=== PATIENT | female | born 1990 | race Caucasian/White ===

== ENCOUNTER 2024-08-28 16:25 | Emergency (ER) | payer BC, SELFPAY ==
[2024-08-28 16:44] VITALS: BP 118/82; PULSE 78; RESP 14; TEMP 37; O2SAT 98; BMI 27.2
--- NOTE | 2024-08-28 17:38 | ED.GENADULT ---
HPI - General Adult General Date Seen: 08/28/24 Chief complaint: Skin/Abscess/Foreign Body Stated complaint: l. wrist possible cyst Time Seen by Provider: 08/28/24 17:27 History of Present Illness HPI narrative: 34-year-old female with a past medical history of GERD, fibromyalgia, history of gastric sleeve surgery and subsequent belt lipectomy, presenting to the ER today for a painful lump on her left wrist. She recalls that she had a lump on her left wrist some years ago and apparently was a cyst. She does not remember for sure but it might have been a ganglion cyst. She has had a recurrent lump affecting the palmar aspect on the ulnar side of her wrist for the past few weeks. It is a small lump roughly 1 or 2 cm in size. It has been getting a bit more painful for the past several days and now is causing diffuse wrist pain on the palmar surface and also on the dorsal surface of her wrist. The wrist pain it hurts more when she tries to flex and extend her fingers as well as flex and extend her wrist. She is able to pronate and supinate normally. Sometimes when the pain is severe it radiates all the way up the ulnar side of her wrist almost all the way to the elbow. She is not having any elbow pain and no trouble bending or straightening her elbow. No associated neck pain or other numbness down her arm. She has not noticed any redness. She noticed that her wrist and hands been a bit swollen. She wears her grandmother's ring on her left ring finger and normally it is loose but today it was tight. She was not able to get her ring off at home but was able to get off after she got here to the ER. She has not noticed any pallor or redness or discoloration of the wrist or hand. She has intact sensation in her hand. She is able to flex and extend her thumb and fingers but has wrist pain with flexing her fingers. No known injury. No fever or chills. She is not diabetic or immunosuppressed. Related Data Home Medications ?Medication ?Instructions ?Recorded ?Confirmed zinc gluconate 30 mg tablet 30 mg PO ONCE 05/26/22 09/10/22 [id number]-yhswilxn-yvbc 45 mg-folic 1 cap PO 07/14/22 09/10/22 acid 800 mcg-vit K 120 mcg capsule (Bariatric Multivitamins) Allergies Allergy/AdvReac Type Severity Reaction Status Date / Time codeine Allergy Severe Puffs up Verified 08/28/24 16:47 penicillin V Allergy Severe Airway Verified 08/28/24 16:47 blocked acetaminophen (From Allergy Verified 08/28/24 16:47 Tylenol-Codeine #3) [facility] Medical History (Updated 08/28/24 @ 20:35 by Justino Granados MD) History of chronic fatigue ?Z87.898 - Personal history of other specified conditions (ICD-10) History of anxiety ?Z86.59 - Personal history of other mental and behavioral disorders (ICD-10) History of tendinitis ?Z87.39 - Personal history of other diseases of the musculoskeletal system and connective tissue (ICD-10) Mild chronic gastritis ?K29.50 - Unspecified chronic gastritis without bleeding (ICD-10) History of anemia ?Z86.2 - Personal history of diseases of the blood and blood-forming organs and certain disorders involving the immune mechanism (ICD-10) Hx of migraine headaches ?Z86.69 - Personal history of other diseases of the nervous system and sense organs (ICD-10) Campos's cyst, unruptured ?M71.20 - Synovial cyst of popliteal space [Campos], unspecified knee (ICD-10) History of prediabetes ?Z87.898 - Personal history of other specified conditions (ICD-10) Loose skin ?L98.7 - Excessive and redundant skin and subcutaneous tissue (ICD-10) History of kidney stones ?Z87.442 - Personal history of urinary calculi (ICD-10) Kidney disease, medullary sponge ?Q61.5 - Medullary cystic kidney (ICD-10) Left wrist pain ?M25.532 - Pain in left wrist (ICD-10) -induced hypertension ?O13.9 - Gestational [-induced] hypertension without significant proteinuria, unspecified trimester (ICD-10) Obesity ?E66.9 - Obesity, unspecified (ICD-10) Infertility (05/01/15) Gestational diabetes mellitus (GDM) ?O24.419 - Gestational diabetes mellitus in , unspecified control (ICD-10) Excessive growth affecting management of mother ?O36.60X0 - Maternal care for excessive growth, unspecified trimester, not applicable or unspecified (ICD-10) Elevated blood-pressure reading without diagnosis of hypertension ?R03.0 - Elevated blood-pressure reading, without diagnosis of hypertension (ICD-10) Abscess of pelvis Surgical History (Updated 09/10/22 @ 15:19 by Nu Villanueva APRN, BUSINESS OPERATIONS CONSULTANT) History of cholecystectomy ?Z90.49 - Acquired absence of other specified parts of digestive tract (ICD-10) Hx of arthroscopy of left knee ?Z98.890 - Other specified postprocedural states (ICD-10) S/P laparoscopic sleeve gastrectomy ?Z98.84 - Bariatric surgery status (ICD-10) History of partial hysterectomy ?Z90.711 - Acquired absence of uterus with remaining cervical stump (ICD-10) Status post primary low transverse section ?Z98.891 - History of uterine scar from previous surgery (ICD-10) Family History (Updated 09/10/22 @ 15:20 by Nu Villanueva APRN, BUSINESS OPERATIONS CONSULTANT) Maternal Grandfather Heart disease Stroke Pulmonary embolism Mother Mental health disorder Medullary sponge kidney Fibromyalgia Anemia Hx of blood clots Brother Pulmonary embolism Daughter Medullary sponge kidney Maternal Grandmother Atrial fibrillation Hx of blood clots Pre-diabetes Uncle Heart disease Daughter Medullary sponge kidney Social History (Updated 05/26/22 @ 08:38 by Nu Villanueva APRN, BUSINESS OPERATIONS CONSULTANT) Narrative: . Works for [employer]. Exercises daily. Non-smoker. No alcohol. No illicit drug use. Smoking Status: Former smoker How often do you have a drink containing alcohol: never AUDIT-C Alcohol total score: 0 Non-prescribed substance use: denies use Exam Narrative: Exam Narrative: Constitutional: Appears well-developed and well-nourished. Active polite. Although she is uncomfortable she politely declines offered opiates.. Non-toxic appearing. HENT: Head: Atraumatic. No signs of injury. Nose: No nasal discharge. Mouth/Throat: Mucous membranes are moist. Eyes: Conjunctivae normal and EOM are normal. Pupils are equal, round, and reactive to light. Right eye exhibits no discharge. Left eye exhibits no discharge. No icterus. Neck: Normal range of motion. Neck supple. No adenopathy. No stridor. Cardiovascular: Normal rate and regular rhythm. No murmur heard. No murmurs, rubs, or gallops. Brisk capillary refill Pulmonary/Chest: Effort normal. No stridor. No respiratory distress. No wheezes.No rhonchi. No rales. No retractions. Musculoskeletal: Normal normal except for her left wrist. Left upper extremity: Normal range of motion in her shoulder and elbow. No clavicle, shoulder, humerus, biceps, triceps pain. Elbow is nontender. Normal pronation and supination. No tenderness palpation on the volar tools or forearm. No swelling or redness on the forearm. Wrist: She does have subtle swelling roughly 1 or 2 cm in diameter affecting the volar surface of her wrist on the ulnar side. This is not just the ulnar styloid which would be more ulnar and dorsal. No fluctuance. The swelling is slightly firm. There is no surrounding erythema. There is no other erythema of the wrist. I do not appreciate any dorsal swelling or any palpable wrist joint effusion. Range of motion the of the wrist is limited by pain to about 45? of flexion and extension. Normal pronation/supination of the forearm. She has normal extension, opposition, and adduction of her thumb. She is able to fully extend all of her fingers at the MCP, PIP, DI P joints. She is able to almost completely flex into a fist, but is somewhat limited with full formation of a Fleet's because her wrist hurts when she tries to flex her fingers. Intact ulnar, median, radial nerve sensory function. Normal capillary refill in each finger tip. Strong radial pulse. There is no appreciable warmth around or redness around the wrist or forearm or hand.. Although her fingers were swollen this morning, they are not visibly swollen when compared to her right hand at this time. Neurological: Alert. Normal strength. No cranial nerve deficit or sensory deficit. Coordination normal. GCS eye subscore is 4. GCS verbal subscore is 5. GCS motor subscore is 6. Skin: Skin is warm. No rash noted. Const: Vital Signs, click to edit/add: Vital Signs - 24 hr 08/28/24 16:44 Temperature 98.6 F Pulse Rate [Pulse Oximeter] 78 Respiratory Rate 14 Blood Pressure [Ri ght Upper Arm] 118/82 Pulse Oximetry 98 Oxygen Delivery Me thod Room Air Course Vital Signs Vital signs: Initial Vital Signs Temperature 98.6 F 08/28/24 16:44 Temperature Source Temporal Artery Scan 08/28/24 16:44 Pulse Rate 78 08/28/24 16:44 Pulse Rhythm Regular 08/28/24 16:44 Respiratory Rate 14 08/28/24 16:44 Blood Pressure 118/82 08/28/24 16:44 Blood Pressure Mean 94 08/28/24 16:44 Blood Pressure Position Sitting 08/28/24 16:44 Pulse Oximetry 98 08/28/24 16:44 Oxygen Delivery Method Room Air 08/28/24 16:44 Vital Signs Temperature 98.6 F 08/28/24 16:44 Pulse Rate 78 08/28/24 16:44 Respiratory Rate 14 08/28/24 16:44 Blood Pressure 118/82 08/28/24 16:44 Pulse Oximetry 98 08/28/24 16:44 Oxygen Delivery Method Room Air 08/28/24 16:44 Temperature 98.6 F 08/28/24 16:44 Pulse Rate 78 08/28/24 16:44 Respiratory Rate 14 08/28/24 16:44 Blood Pressure 118/82 08/28/24 16:44 Pulse Oximetry 98 08/28/24 16:44 Oxygen Delivery Method Room Air 08/28/24 16:44 Medical Decision Making MDM Narrative Medical decision making narrative: 34-year-old female with no history of diabetes or immunosuppression presenting to the ER today with atraumatic progressively worsening left wrist pain over the past few weeks. She does note that it started with a small lump on the volar aspect of the wrist on the ulnar side. The lump is present today but not clearly round circumcised lump to suggest a ganglion cyst. Clinically there is no overlying erythema and no palpable fluctuance so I do not think the lump represents a hematoma, abscess, or other fluid collection. She has no recent trauma. X-rays of the wrist are obtained look for occult fracture or some other occult foreign body and x-rays are normal. She is not febrile and there is no redness or warmth of the wrist so low suspicion for septic arthritis. However we did obtain labs. White count and CRP are both normal. At this point I do not think she needs empiric antibiotics for septic arthritis. With the swelling on the volar aspect of the wrist, I do think she needs to be evaluated by Orthopedics. Consider possible crystalline arthritis. At this point though there is no appreciable wrist joint effusion that I would be able to successfully tap here in the ER tonight. Will place her into a splint for tonight Pain control for tonight is difficult. She has been taking Tylenol with only limited improvement. She cannot take NSAIDs due to her history of stomach surgery. She is politely but firmly declining opiate analgesics given history of pain med use in the past with previous surgeries. She also needs to remain at clinically coherent and cannot be drowsy from pain meds because she has special needs children at home. Therefore she will continue to manage with Tylenol for now. Given referral for outpatient follow-up with [facility]. Unfortunately we were not able to schedule her with her follow-up appointment while she was here in the ER [facility]. She indicates that she may want to follow up with [facility] orthopedics. I think as long she follows up with Ortho as soon as possible for throat ablation I think that is reasonable. Lab Data Labs: Lab Results 08/28/24 Range/Units 18:46 WBC 5.60 (4.50-11.00) K/uL RBC 4.19 (4.00-5.20) m/uL Hgb 12.3 (12.0-16.0) gm/dL Hct 37.5 (33.0-51.0) % MCV 90 (80-100) fL MCH 29 (26-34) pg MCHC 33 (32-36) gm/dL RDW Coeff of Yossi 12.0 (11.5-15.5) % Plt Count 157 (140-440) K/uL Neut % (Auto) 53.1 (42.0-72.0) % Lymph % (Auto) 33.8 (20-44) % Chester % (Auto) 9.6 (0.0-11.0) % Eos % (Auto) 3.0 (0.0-7.0) % Baso % (Auto) 0.5 (0.0-3.0) % Neut # (Auto) 2.97 (1.7-7.0) K/uL Lymph # (Auto) 1.89 (0.90-2.90) K/uL Chester # (Auto) 0.50 (0.00-0.90) K/UL Eos # (Auto) 0.17 (0.00-0.50) K/uL Baso # (Auto) 0.03 (0.00-0.30) K/uL Abs Immat Gran (auto) 0.00 (0.00-0.30) K/uL Imm/Tot Granulo (auto) 0.0 % Sodium 139 (135-149) mmol/L Potassium 3.4 L (3.6-5.1) mmol/L Chloride 103 (96-114) mmol/L Carbon Dioxide 29 (20-32) mmol/L Anion Gap 7 (7-15) mEq/L BUN 14 (5-24) mg/dL Creatinine 0.7 (0.5-1.5) mg/dL Estimated Creat Clear 112.08 Estimated GFR 115 ml/min Glucose 93 (60-115) mg/dL Calcium 9.4 (8.4-10.6) mg/dL C-Reactive Protein < 0.5 L (0.5-1.0) mg/dL Imaging Data XR wrist: Attestation: I have reviewed the pertinent imaging results. My impression: no acute fracture Radiologist's impression: None. Findings/Impression: Bones: Alignment is normal. No displaced fractures or bone lesions. Joint spaces: Unremarkable. Soft tissues: Unremarkable. Discharge Plan Discharge Clinical Impression: Acute pain of left wrist Instructions: Arthralgia (ED), Swollen Joint (ED) Additional Instructions: As we discussed, your x-rays look normal in your labs look good. At this point the cause of the wrist pain is not clear and you need further evaluation by Orthopedics. This wrist pain could be due to a condition called a ganglion cyst or possibly some other problem with your wrist joint like gout or rheumatoid arthritis. You need further evaluation with Ortho. To schedule your orthopedic appointment, call [phone] For now continue to manage the pain with Tylenol and her medications at home. Use ice for 15-20 minutes every 3 hours to help reduce pain and swelling. Wear the splint to help keep her wrist immobilized and protected until you can see Orthopedics If you have any worsening problems especially worsening pain, increasing swelling, new redness of your wrist, any fever or chills, please return to the ER right away. Prescriptions: No Action zinc gluconate 30 mg tablet 30 mg PO ONCE Bariatric Multivitamins 45 mg iron- 800 mcg-120 mcg capsule 1 cap PO Follow Up/Referrals: Nu Villanueva, FORM SETTER/DRIVER, BUSINESS OPERATIONS CONSULTANT [Primary Care Provider] - Stand Alone Forms: [facility] Info Instructions
--- NOTE | 2024-08-28 18:26 | CRLHL7_ITS ---
For Patients: As a result of the Cures Act, medical imaging exams and procedure reports are released immediately into your electronic medical record. You may view this report before your referring provider. If you have questions, please contact your health care provider. Indication: Trauma. Technique: Left wrist, 3 views. Comparison: None. Findings/Impression: Bones: Alignment is normal. No displaced fractures or bone lesions. Joint spaces: Unremarkable. Soft tissues: Unremarkable. Dictated by Chetan Hamilton MD @ 08/28/2024 7:15:40 PM (Electronically Signed)
--- OUTSIDE RECORDS SUMMARY | 2024-08-28 18:26 | XMS_ITS ---
Author Organization [facility] Address [address] [place] [id number] Care Team Providers Care Agriculture Technician Name Role Phone Unavailable Unavailable Unavailable Surgery Details Not on file Complications Check Surgery Details section. Procedure Estimated Blood Loss Check Surgery Details section. Procedure Findings Check Surgery Details section. Procedure Specimens Taken Check Surgery Details section.
--- OUTSIDE RECORDS SUMMARY | 2024-08-28 18:26 | XMS_ITS | Encounter Summary ---
Author Organization [facility] er Address [address] [place] [id number] Care Team Providers Care Financial Aid Manager Name Role Phone Mari Fernandez MD Primary Care Provider Encounter Details Date Type Department Care Team (Late st Contact Info) Description 08/27/2018 Telephone [facility] Medical/Surgical [address] [place] [address] [phone] [place] [address] [place] [address] [phone] Social History Tobacco Use Types Packs/Day Years Used Date Smoking Tobacco: Former Smokeless Tobacco: Never Alcohol Use Standard Drinks/Week Comments No 0 (1 standard drink = 0.6 oz pur e alcohol) AUDIT-C Answer Date Recorded Frequency of Alcohol Consumption Never 07/27/2018 Average Number of Drinks Not on file 018 Frequency of Binge Drinking Not on file 07/11 Comments Unknown Sex and Gender Information Value Date Recorded Sex Assigned at Female 06/14/2019 11:39 AM CDT Legal Sex Female 9:03 PM CDT Gender Identity Female 01/26/2019 7:58 AM CDT Sexual Orientation Straight 06/14/2019 11 :39 AM CDT documented as of this encounter Plan of Treatment Not on file documented as of this encounter Visit Diagnoses Not on filedocumented in this encounter Care Teams Financial Aid Manager Relationship Specialty Start Date End Date Mari Fernandez MD [address] [place] [address] [phone] PCP - General 01/27/22 documented as of this encounter
--- OUTSIDE RECORDS SUMMARY | 2024-08-28 18:26 | XMS_ITS | Encounter Summary ---
Author Organization [facility] er Address [address] [place] [id number] Care Team Providers Care Import/Export Specialist Name Role Phone Mari Fernandez MD Primary Care Provider Encounter Details Date Type Department Care Team (Late st Contact Info) Description 09/12/2018 Telephone [facility] Respiratory Practitioner [address] [place] [phone] Rae Mattson MD [address] [place] [phone] Social History Tobacco Use Types Packs/Day Years [...] on filedocumented in this encounter Care Teams Import/Export Specialist Relationship Specialty Start Date End Date Mari Fernandez MD [address] [place] [address] [address] [place] [phone] PCP - General 01/27/22 documented as of this encounter
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
--- OUTSIDE RECORDS SUMMARY | 2024-08-28 18:26 | XMS_ITS | Clinical Summary ---
Author Organization [facility] Address [address] [place] [address] Care Team Providers Care Children'S Librarian Name Role Phone Mari Fernandez MD Primary Care Provider Allergies Active Allergy Reactions Criticality Noted Date Comments Acetaminophen-Codeine Other (see comments) High 08/13 Respiratory depression Codeine Anaphylaxis High 01/04/2009 Hydrocodone-Acetamino phen Other (see comments) High Respiratory depression Penicillins Anaphylaxis High Medications * This document contains information received from the source organization and may not represent a complete record from that organization. Multiple Vitamins-Minera ls (BARIATRIC MULTIVITAMINS/I NAS) capsule 1 (one) time each day 12/18/2019 Active Zinc 220 (50 Zn) MG capsule Take 1 capsule by mouth 1 (one) time each day Pt unsure of dose Active Biotin 10 MG capsule Take 1 tablet by mouth 1 (one) time each day Pt unsure of dose Active Vitamin A 3 MG (74252 UT) capsule Take 1 capsule by mouth 1 (one) time each day if needed Active Active Problems Problem Noted Date Diagnosed Date Low serum vitamin A 02/28/2020 Status post laparoscopic sleeve gastrectomy 08/12 History of prediabetes 06/15/2019 Low serum vitamin D 06/15/2019 Chronic fatigue 01/26/2019 History of hysterectomy including cervix 018 Overview (09/17/2020): Bimanual exam with ELEMENTARY SCHOOL TEACHER q4yrs. Migraine without status migrainosus, not intract able 04/29/2015 Overweight (BMI 25.0-29.9) 04/24/2015 Resolved Problems Problem Noted Date Diagnosed Date Resolved Date Bariatric surgery status 06/08/201904/2020 Bursitis/tendonitis, shoulder 01/12/2019 09/16/2020 Tendonitis of elbow or forearm 01/12/2019 09/16/2020 Sprain of right foot 12/07/2018 020 Abnormal uterine bleeding 08/26/2018 Class 3 severe obesity in adult 08/26/2018 10/11/2021 Calculus of kidney 12/20/2013 0 Immunizations Name Administration Dates Next Due Influenza 6mo-64yrs Quad Preservative Free IM Influenza, Split Virus, Trivalent, Preservative 07/21/2018 Tdap 01/27/2013,01/17/2009 Family History Medical History Relation Comments Pulmonary embolism Brother Kidney disease Daughter 1 medullary sponge kidney Kidney disease Daughter 2 medullary sponge kidney No Known Problems Father No Known Problems Father's Brother 1 No Known Problems Father's Brother 2 Heart disease Father's Brother 3 LVAD heart im plant Heart disease Maternal Grandfather quadruple b ypass Other Maternal Grandfather bilateral h ips and knees replaced Pulmonary embolism Maternal Grandfather Atrial fibrillation Maternal Grandmother Other Maternal Grandmother h/o blood c lots Anemia Mother Fibromyalgia Mother Kidney disease Mother medullary sponge kidney Other Mother h/o blood clots No Known Problems Mother's Sister Other Paternal Grandfather bilaeral hi p and knee replacement Other Paternal Grandmother prediabetes No Known Problems Son 1 No Known Problems Son 2 Relation Status Comments Brother Alive Daughter 1 Alive Daughter 2 Alive Father Alive Father's Brother 1 Alive Father's Brother 2 Alive Father's Brother 3 Alive Maternal Grandfather Alive Maternal Grandmother Alive Mother Alive Mother's Sister Alive Paternal Grandfather Alive Paternal Grandmother Alive Son 1 Alive Son 2 Alive Social History Tobacco Use Types Packs/Day Years Used Date Smoking Tobacco: Former Cigarettes 0.5 5 2 009 - 2013 Smokeless Tobacco: Never Tobacco Cessation:Counseling Given: No Alcohol Use Standard Drinks/Week Comments No 0 (1 standard drink = 0.6 oz pur e alcohol) AUDIT-C Answer Date Recorded Q1: How often do you have a drink containing alc ohol? Never 09/09/2020 Average Number of Drinks Not on file 020 Frequency of Binge Drinking Not on file 08/13 Overall Financial Resource Strain (CARDIA) Answe r Date Recorded How hard is it for you to pa y for the very basics like food, housing, medical care, and heating? Not hard at all 07/17/2020 PHQ-2 Answer Date Recorded PHQ-9 Total Score 0 10/13/2021 [facility] [place] [facility] - Occupational Stress Questionnaire Answer Date Recorded Do you feel stress - tense, restless, nervous, or anxious, or unable to sleep at night because your mind is troubled all the time - these days? Only a little 07/17/2020 Exercise Vital Sign Answer Date Recorde d On average, how many days pe r week do you engage in moderate to strenuous exercise (like a brisk walk)? 7 days 07/17/2020 On average, how many minutes do you engage in exercise at this level? 40 min 07/17/2020 Hunger Vital Sign Answer Date Recorded Within the past 12 months, y ou worried that your food would run out before you got the money to buy more. Never true 07/17/20 20 Within the past 12 months, t he food you bought just didn't last and you didn't have money to get more. Never true 07/17/2020 PRAPARE - Transportation Answer Date Re corded In the past 12 months, has l ack of transportation kept you from medical appointments or from getting medications? No 04/2020 In the past 12 months, has l ack of transportation kept you from meetings, work, or from getting things needed for daily living? No 07/17/2020 Education Answer Date Recorded What is the highest level of school you have completed or the highest degree you have received? 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 on file Not on file Not on file Last Filed Vital Signs Vital Sign Reading Time Taken Comments Blood Pressure 108/64 10/13/2021 9:22 AM JET PIERCER OPERATOR Pulse 81 10/13/2021 9:22 AM JET PIERCER OPERATOR Temperature 37.4 C (99.3 F) 06/09/2021 10:07 AM CDT Respiratory Rate 24 06/09/2021 10:07 AM CDT Oxygen Saturation 99% 06/09/2021 10:07 AM CDT Inhaled Oxygen Concentration - - Weight 76.7 kg (169 lb 1.5 oz) 10/13/2021 9:22 A M JET PIERCER OPERATOR Height 170.2 cm (5' 7) 06/09/2021 10:07 AM CDT Body Mass Index 26.48 06/09/2021 10:07 AM CDT Plan of Treatment Health Maintenance Due Date Last Done Comments COVID-19 Vaccine ( season) 2024 Influenza Vaccine (#1) 2024 8, 07/21/2018, 07/06/2018, Additional history exists DTaP,Tdap,and Td Vaccines (4 - Td or Tdap) 07/30/2026 07/30/2016, 01/27/2013, 01/17/2009 Pap Smear Discontinued 08/25/2018, 05/16/2013 HPV Vaccines Aged Out No longer eligi ble based on patient's age to complete this topic Pneumococcal Vaccine: Pediatrics (0 to 5 Years) and At-Risk Patients (6 to 64 Years) Aged Out No longer eligible based on patient's age to complete this topic Medical Devices Implanted Type Area Flask Cleaner Device Identifier Shelf Expiration Date Model / Serial / Lot Endo Mary Reload Tri-Staple 60mm Extra Thick - [id number] - [id number] Implanted:Qty: 2 on 09/08/2019 by James Cassidy MD at [facility] N/A: Stomach [id number] / [id number] / Procedures Procedure Name Priority Date/Time Associated Diagnosis Comments PAP TEST Routine 05/16/2013 4:45 PM CDT from Last 3 Months or Most Recently Relevant to Health Maintenance Results * Pap Smear (05/16/2013 4:45 PM CDT) SurePath Pap Test SEE BELOW [facility] Comment: [address] [address] Patient: TOSHIA TRAN Procedure: 05/16/2013 16:45 /Age/Sex 1990, 23 Y, F Received: 05/17/2013 14:17 : #: Billin Patient Location: [facility] Ordered by: AJ ROBISON MD Attending: AJ ROBISON MD ELEMENTARY SCHOOL TEACHER CYTOLOGY FINAL REPORT SPECIMEN: (A) SURE PATH PAP SCREEN WITH HPV REFLEX SPECIMEN DESCRIPTION: NO COLLECTION DEVICE FOUND IN VIAL. Cervical/Endocervical Received cloudy specimen in SurePath vial. CLINICAL INFORMATION: Contraceptive: Depo Provera Prev.normal: 04/2010 SPECIMEN ADEQUACY: Satisfactory for Evaluation. Endocervical cells/transformation zone component present. GENERAL CATEGORIZATION: Negative for Intraepithelial Lesion or Malignancy INTERPRETATION/RESULTS: Shift in vaginal shaun suggestive of bacterial vaginosis. Benign cellular changes associated with inflammation PAP Test Disclaimer Cervical cytology is a screening test primarily for squamous cancer and its precursors and has associated false-negative and false-positive results. Regular sampling and follow-up of unexplained clinical signs and symptoms are recommended to minimize the impact of false negative and false positive results. Screened By: SHAYLA RUIZ (ASCP) Signed By: EZE ASENCIO M.D <Sign Out Dr. Cervantes> Reported: 05/22/2013 Page 1 of 1 Sure Path PAP screen with HPV reflex 05/16/2013 4:45 PM CDT 05/17/2013 2:17 PM CDT Aj Robison LAB CYTOLOGY ORDERABLES Final Re sult [facility] [address] [place] [address] from Last 3 Months or Most Recently Relevant to Health Maintenance Insurance [facility] [place] [address] [facility] [place] Advance Directives For more information, please contact: [phone] Documents on File Type Date Recorded Patient Vp Foundation Expl anation Advance Directives and Livin g Will 08/10/2018 11:08 AM * Full Code (Latest Code Status on File) Date Activated Date Inactivated Comments 09/08/2019 4:44 PM 09/10/2019 2:02 PM * Full Code Date Activated Date Inactivated Comments 08/25/2018 4:45 PM 08/26/2018 12:23 PM Care Teams Children'S Librarian Relationship Specialty Start Date End Date Mari Fernandez MD [address] [place] [phone] PCP - General 01/27/22
--- OUTSIDE RECORDS SUMMARY | 2024-08-28 18:26 | XMS_ITS | Referral Summary ---
Author Organization [facility] Address [address] [place] [address] Care Team Providers Care Foundation Assistant Name Role Phone Unavailable Primary Care Provider Unavailabl e Source Comments Patient records contain information from all sites at [facility]. For routine questions regarding patient records, call [phone] during business hours, M-F 8:00 AM - 5:00 PM Central Time. Record requests for emergency care only can be directed to [phone] at any time.[facility] Active Problems Problem Noted Date Diagnosed Date Chronic Kidney Disease NOS 08/08/2015 Immunizations Name Administration Dates Next Due Tdap 01/27/2013 Social History Tobacco Use Types Packs/Day Years Used Date Smoking Tobacco: Unknown Nutrition Answer Date Recorded Nutrition: EVOO Fat Source Unknown 05/16 Nutrition: Servings of Fruits/Vegetables per Day Not on file 05/16/2022 Dental Answer Date Recorded Dental: Regular Dentist Unknown 05/16/20 22 Comments Unknown Sex and Gender Information Value Date Recorded Sex Assigned at Not on file Legal Sex Female 8:55 AM JACKAROO Gender Identity Not on file Sexual Orientation Not on file Last Filed Vital Signs Vital Sign Reading Time Taken Comments Blood Pressure 134/76 05/22/2016 1:21 PM CDT Pulse 98 05/22/2016 1:21 PM CDT Temperature - - Respiratory Rate 14 05/09/2015 9:42 PM CDT Oxygen Saturation - - Inhaled Oxygen Concentration - - Weight 144 kg (317 lb 7.4 oz) 05/22/2016 1:21 PM CDT Height 169 cm (5' 6.54) 05/22/2016 1:21 PM CDT Body Mass Index 50.42 05/22/2016 1:21 PM CDT Plan of Treatment Not on file Insurance [place] [address] [facility]
--- OUTSIDE RECORDS SUMMARY | 2024-08-28 18:26 | XMS_ITS | Clinical Summary ---
Author Organization [facility] Address [address] [place] [address] Care Team Providers Care Fabricator Assembler Metal Products Name Role Phone Unavailable Primary Care Provider Unavailabl e Source Comments Patient records contain information from all sites at [facility]. For routine questions regarding patient records, call [phone] during business hours, M-F 8:00 AM - 5:00 PM Central Time. 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 Gender Identity Not on file Sexual Orientation [...] 05/22/2016 1:21 PM CDT Plan of Treatment Health Maintenance Due Date Last Done Comments Cervical/Vaginal Cancer Screening 1990 HIV Screening 1990 Hepatitis C Screening 1990 Hepatitis B Vaccines (1 of 3 - 19+ 3-dose series) 2007 DTaP,Tdap,and Td Vaccines (3 - Td or Tdap) 01/27/2023 01/27/2013, 01/17/2009 Depression Screening (Annual PHQ-2) 10/11/2023 COVID-19 Vaccine ( season) 2024 Influenza Vaccine (#1) 2024 07/21/2018, 2017 Lipid (Cholesterol) Screening 02/11/2026 02/11/2021, 02/20/2020, 11/21/2019, Additional history exists HPV Vaccines Aged Out No longer eligi ble based on patient's age to complete this topic IPV Vaccines Aged Out No longer eligi ble based on patient's age to complete this topic Pneumococcal vaccine (0-64 years) Aged Out No longer eligible based on patient's age to complete this topic [place] [address] [place] [address] [facility]
[2024-08-28 18:52] LABS: Basophils Absolute Auto 0.03 K/uL (0.00-0.30); Basophils Percent Auto 0.5 % (0.0-3.0); Eosinophils Absolute Auto 0.17 K/uL (0.00-0.50); Hematocrit 37.5 % (33.0-51.0); Hemoglobin* 12.3 gm/dL (12.0-16.0); Lymphocytes Absolute Auto 1.89 K/uL (0.90-2.90); Lymphocytes Percent Auto 33.8 % (20-44); Mean Corpuscular HGB Conc 33 gm/dL (32-36); Mean Corpuscular Hemoglobin 29 pg (26-34); Mean Corpuscular Volume 90 fL (80-100); Monocytes Percent Auto 9.6 % (0.0-11.0); Neutrophils Absolute Auto 2.97 K/uL (1.7-7.0); Neutrophils Percent Auto 53.1 % (42.0-72.0); Platelet Count* 157 K/uL (140-440); Red Blood Count 4.19 m/uL (4.00-5.20)
[2024-08-28 18:55] LABS: Slide Review Reflex No
[2024-08-28 19:11] LABS: Chloride* 103 mmol/L (96-114)
[2024-08-28 19:12] LABS: Potassium* 3.4 mmol/L (3.6-5.1); Sodium* 139 mmol/L (135-149)
[2024-08-28 19:14] LABS: Creatinine* 0.7 mg/dL (0.5-1.5); Est. Creatinine Clearance* 112.08; Estimated Glomerular Filt Rate 115 ml/min
[2024-08-28 19:15] LABS: Anion Gap 7 mEq/L (7-15); Blood Urea Nitrogen* 14 mg/dL (5-24); Calcium* 9.4 mg/dL (8.4-10.6); Carbon Dioxide* 29 mmol/L (20-32); Glucose* 93 mg/dL (60-115)
[2024-08-28 19:19] LABS: C Reactive Protein* < 0.5 mg/dL (0.5-1.0)
== END 2024-08-28 20:50 | disposition home or self-care (01) ==
PROVIDERS: Emergency Provider Emergency Medicine; PCP Nurse Practitioner Family
DX: M25.532 Pain in left wrist (principal)
CPT/HCPCS: 29125; 36415; 73110; 80048; 85025; 86140; 99282; 99283